=== PATIENT | male | born 1965 | race African-American/Black ===

== ENCOUNTER 2017-01-19 13:09 | Emergency (ER) | payer SELFPAY ==
[~2017-01-19] VITALS: Ht 180.3 cm; Wt 79.5 kg
[2017-01-19 13:21] VITALS: BP 117/76
== END 2017-01-19 17:29 | disposition left against medical advice (07) ==
LOC: ER 14:54
DX: M79.604 Pain in right leg (principal); Z53.21 Procedure and treatment not carried out due to patient leaving prior to being seen by health care provider